=== PATIENT | female | born 1930 | race Caucasian/White ===

== ENCOUNTER 2020-01-01 13:20 | Emergency (ER) | payer MEDICARE, BC ==
--- NOTE | 2020-01-01 14:11 | CT ---
CT HEAD WITHOUT IV CONTRAST COMPARISON: None HISTORY: Headache after a fall. Vertigo. TECHNIQUE: Axial CT imaging at 5 mm intervals from vertex through skull base without contrast FINDINGS: Diminished attenuation is seen in the periventricular white matter which is nonspecific but likely re flective of chronic small vessel ischemic changes. Mild cerebral volume loss is present. There is no evidence of an acute infarction, hemorrhage, mass effect, or midline shift. The ventricular system is normal in size, shape, and position. There is opacification of the right maxillary antrum with increased density material within the right maxillary antrum most compatible with hemorrhage. There are nondisplaced fractures seen involving the anterior as well as lateral caldwell of the right maxillary antrum. Fracture of the orbital floor is not entirely excluded. Remainder of the paranasal sinuses and mastoid air cells are clear. No calvarial fracture is seen. Mild subcutaneous soft tissue swelling is seen anterior to the right maxi llary antrum. IMPRESSION: 1. No acute intracranial abnormality demonstrated. 2. Chronic small vessel ischemic changes and cerebral volume loss. 3. Nondisplaced fractures involving the caldwell of the right maxillary antrum with hemorrhage in the ri ght maxillary antrum. CT scan facial bones is suggested for further evaluation.
[2020-01-01 14:17] LABS: #Eosinphils 0.1 thou/uL (0.0-0.7); #Lymphocytes 1.2 thou/uL (1.20-3.40); #Monocytes 0.8 thou/uL (0.11-0.59); %Basophils 0.1 % (0.0-1.0); %Eosinophils 0.7 % (0.0-10.0); %Lymphocytes 10.8 % (21.0-51.0); %Monocytes 6.8 % (0.0-10.0); %Neutrophils 81.6 % (42.0-75.0); Hemoglobin 12.1 g/dL (12.0-16.0); Mean Corpuscular HGB CONC 34.3 g/dL (32.0-36.0); Mean Corpuscular Hemoglobin 31.7 pg (27.0-31.0); Mean Corpuscular Volume 92.3 fL (78.0-98.0); Mean Platelet Volume 6.5 fL (7.4-10.4); Platelet Count 190 thou/uL (130-400); RBC Distribution Width 12.4 % (11.5-14.5); Red Blood Cell (RBC) Count 3.81 mill/uL (4.20-5.40)
--- NOTE | 2020-01-01 14:18 | CT ---
EXAM: CT Facial Bones WO Con PROVIDED CLINICAL HISTORY: Injury after a fall. Facial bone fractures seen on CT head. COMPARISON: CT head on 01/01/2020 FINDINGS: As noted on the CT scan of the head, there are nondisplaced fractures involving the anterior as well as the lateral caldwell of the right maxillary antrum. There is also suggestion of a subtle nondisplaced fracture involving the orbital floor. Increased density material is seen within the righ t maxillary antrum related to hemorrhage. Subcutaneous soft tissue swelling is seen adjacent to the right zygomatic bone and in a periorbital location greater in the infraorbital location. Subcutaneous emphysema is also seen anterior to the right maxillary antrum related to the fractures. 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 No additional fracture is seen involving the facial bones. The orbits are symmetric in appearance bilaterally without evidence of a post septal hematoma or stra nding. IMPRESSION: 1. Nondisplaced fractures involving the caldwell of the right maxillary antrum including what appears to be subtle nondisplaced fracture of the orbital floor. Opacification of the right maxillary antrum is present with hemorrhage in the right maxillary antrum. 2. Right periorbital subcutaneous soft tissue swelling greater in the infraorbital location and adjac ent to the right zygomatic bone.
[2020-01-01] MEDS ORDERED: Adacel (T-DAP) 0.5 ML SYRINGE ONE (14:41)
[2020-01-01 14:47] LABS: ALT (SGPT) 13 U/L (8-55); AST (SGOT) 34 U/L (5-34); Albumin 4.3 g/dL (3.4-4.8); Alkaline Phosphatase 70 U/L (40-110); Anion Gap 25 mmol/L (10-20); BUN (Urea Nitrogen) 16 mg/dL (9.8-20.1); Bilirubin, Total 1.5 mg/dL (0.2-1.2); Calc. Creatinine Clearance 0 mL/min (70-130); Carbon Dioxide 16 mmol/L (23-31); Chloride 91 mmol/L (98-107); Estimated GFR-MDRD 50; Globulin 2.8 g/dL (2.4-3.5); Glucose 143 mg/dL (83-110); Potassium 4.4 mmol/L (3.5-5.1); Protein, Total 7.1 g/dL (6.0-8.3); Sodium 128 mmol/L (136-145)
--- NOTE | 2020-01-01 15:08 | RAD ---
CHEST 1 VIEW: Date: 01/01/2020 HISTORY: Vertigo. Injury from fall. FINDINGS: Heart size is within normal limits. Fairly prominent atherosclerotic ectatic changes are noted of the descending aorta. No confluent pneumonia, overt edema, or pleural effusion. IMPRESSION: Atherosclerotic ectatic changes and considerable tortuosity. No acute intrathoracic disease. POS: [facility]
[2020-01-01] MEDS ORDERED: Lidocaine 1% w/Epinephrine 1:100K 20 ML VIAL ONE (15:46)
== END 2020-01-01 18:11 | disposition home or self-care (01) ==
LOC: ERS 13:20
DX: S02.40CA Maxillary fracture, right side, initial encounter for closed fracture (principal); S01.511A Laceration without foreign body of lip, initial encounter; S60.221A Contusion of right hand, initial encounter; S00.03XA Contusion of scalp, initial encounter; E03.9 Hypothyroidism, unspecified; E78.5 Hyperlipidemia, unspecified; I10 Essential (primary) hypertension; W19.XXXA Unspecified fall, initial encounter
CPT/HCPCS: 12051; 36415; 70450; 70486; 71045; 80053; 84484; 85025; 90471; 90715; 93005; 96360; 96361